=== PATIENT | male | born 1940 | race Caucasian/White ===

== ENCOUNTER → 2023-09-03 10:38 | Outpatient (REF) | payer MEDICARE, OTHER, SELFPAY ==
[2023-09-03 16:23] LABS: PSA, Total - Diagnostic 0.98 ng/ml (0.0-4.0)
== END ==
LOC: HWLAB 10:38
PROVIDERS: ATTENDING PHYSICIAN Internal Medicine; FAMILY PHYSICIAN Family Medicine
DX: C61 Malignant neoplasm of prostate (principal)
CPT/HCPCS: 36415; 84153

== ENCOUNTER → 2023-11-05 15:18 | Outpatient (REF) | payer MEDICARE, OTHER, SELFPAY | LOC: HWRAD 15:18 | PROVIDERS: ATTENDING PHYSICIAN Specialist; FAMILY PHYSICIAN Family Medicine | DX: M48.02 Spinal stenosis, cervical region (principal) | CPT/HCPCS: 72050 ==

== ENCOUNTER → 2024-03-04 13:18 | Outpatient (REF) | payer MEDICARE, OTHER, SELFPAY | LOC: HWLAB 13:18 | PROVIDERS: ATTENDING PHYSICIAN Internal Medicine; FAMILY PHYSICIAN Family Medicine | DX: C61 Malignant neoplasm of prostate (principal) | CPT/HCPCS: 36415; 84153 ==

== ENCOUNTER → 2024-09-04 12:58 | Outpatient (REF) | payer MEDICARE, OTHER, SELFPAY ==
[2024-09-04 15:55] LABS: PSA, Total - Diagnostic 0.94 ng/ml (0.0-4.0)
== END ==
LOC: HWLAB 12:58
PROVIDERS: ATTENDING PHYSICIAN Internal Medicine; FAMILY PHYSICIAN Family Medicine
DX: C61 Malignant neoplasm of prostate (principal)
CPT/HCPCS: 36415; 84153